=== PATIENT | female | born 1960 | race Caucasian/White ===

== ENCOUNTER 2017-08-13 22:47 | Observation (INO) | payer OTHER ==
[~2017-08-13] VITALS: Ht 165.1 cm; Wt 158.8 kg
--- NOTE | 2017-08-13 23:23 | ED AMS/SEIZURE/WEAK/DIZZY ---
History of Present Illness General Chief Complaint: General Adult Stated Complaint: BIBA FOR GENERALIZED WEAKNESS Source: patient, family, EMS Exam Limitations: no limitations Vital Signs & Intake/Output Vital Signs & Intake/Output Vital Signs Date Time Temp Pulse Resp B/P B/P Pulse O2 O2 Flow FiO2 Mean Ox Delivery Rate 08/14 0636 98.1 97 18 144/65 97 Room Air 08/13 2342 98 Room Air 08/13 2253 99.2 104 18 158/82 97 Room Air ED Intake and Output 08/14 0000 08/13 1200 Intake Total Output Total Balance Patient 350 lb Weight Weight Reported by Patient Measurement Method Allergies Coded Allergies: No Known Allergies (08/13/17) Triage Note: PT BIBA FROM HOME C/O GENERALIZED WEAKNESS. PT NEW TO CT FROM [place]. PT STATED THE PAST 2X WEEKS FELT GENERALIZED WEAKNESS IN PTS BILATERAL LEGS AND ARMS. 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 PT WAS AMBULATING INTO BED TONIGHT WHEN SHE FELT WEAK AND SLID/LOWERED HERSELF TO THE GROUND LANDING ON LEFT SIDE. PT HAS NO COMPLAINTS ON LEFT SIDE CURRENTLY. PT HAS NOT SEEN A PCP IN OVER 10 YEARS. PT DENIES -HEADSTRIKE AND -LOC, UNWITNESSED. PT A&OX3. PT HAS MED SURG GX OF GALLBLADDER REMOVAL AND OBESITY. DR TEJEDA AT BEDSIDE FOR EVAL Triage Nurses Notes Reviewed? yes Onset: 2 weeks Duration: week(s):, constant, continues in ED Timing: recent history Severity: severe Modifying Factors: Improves With: rest. Worsens With: movement. LMP (ages 10-50): post menopausal : No Patient currently breastfeeds: No HPI: Two weeks prior to admission patient complains of bilateral hand and leg weakness progressing to the point of falling trying to get into bed with difficulty ambulating without assistance. She also complains of loose watery stools anorexia several days prior to admission. She denies fever chills nausea vomiting chest pain cough shortness of breath headache dysuria rash bleeding abdominal pain. (Minnie SCOTT,Rishi) Past History Travel History Traveled to [place] past 21 day No Medical History Any Pertinent Medical History? see below for history Neurological: NONE EENT: NONE Cardiovascular: NONE Respiratory: NONE Gastrointestinal: NONE Hepatic: NONE Renal: NONE Musculoskeletal: NONE Psychiatric: NONE Endocrine: obesity Surgical History Surgical History: non-contributory Psychosocial History What is your primary language Honduran Tobacco Use: Never used ETOH Use: occasional use Family History Hx Contributory? No (Rishi Tejeda MD) Review of Systems Review of Systems Constitutional: Reports: see HPI, weakness. EENTM: Reports: no symptoms. Respiratory: Reports: no symptoms. Cardiovascular: Reports: no symptoms. GI: Reports: see HPI, diarrhea. Genitourinary: Reports: no symptoms. Musculoskeletal: Reports: no symptoms. Skin: Reports: no symptoms. Neurological/Psychological: Reports: no symptoms. Hematologic/Endocrine: Reports: no symptoms. Immunologic/Allergic: Reports: no symptoms. All Other Systems: Reviewed and Negative (Rishi Tejeda MD) Physical Exam Physical Exam General Appearance: well developed/nourished, alert, awake, anxious, moderate distress, obese Head: atraumatic, normal appearance Eyes: Bilateral: normal appearance, PERRL, EOMI. Ears, Nose, Throat: normal pharynx, normal ENT inspection, hearing grossly normal Neck: normal inspection, supple, full range of motion, no midline tenderness Respiratory: normal breath sounds, chest non-tender, no respiratory distress, quiet respiration, lungs clear Cardiovascular: regular rate/rhythm, normal peripheral pulses, norml femoral pulses equa Peripheral Pulses: 4+ carotid (R), 4+ carotid (L) Gastrointestinal: normal bowel sounds, soft, non-tender, no organomegaly Back: normal inspection, normal range of motion Extremities: normal range of motion, no ligament instability Neurologic/Psych: awake, alert, oriented x 3, normal mood/affect, booking officer II-XII nml as tested, motor weakness Reflexes: 2+: bicep (R), bicep (L). Skin: intact, normal color, warm/dry Lymphatic: no anterior cervical betsey Core Measures ACS in differential dx? No CVA/TIA Diagnosis No Sepsis Present: No Sepsis Focused Exam Completed? No (Rishi Tejeda MD) Progress Differential Diagnosis: CVA/stroke, dehydration, electrolyte imbalance, hypoxia, pneumonia Plan of Care: Orders Procedure Date/time Status Regular Diet 08/14 B Active OXYGEN SETUP (GEN) 08/14 400 Active Saline Lock 08/[address] in observation 08/14 400 Active Patient Data 08/14 400 Active Vital Signs 08/14 400 Active Activity/Ambulation 08/14 400 Active Code Status 03/04 0401 Active PT Evaluate & Treat 08/14 234 Active CASE MANAGEMENT CONSULT 08/14 234 Active Gait Training, 15 Min 08/14 UNK Complete PT EVAL LOW COMPLEX 20 MIN 08/14 UNK Complete URINALYSIS 08/14 2307 Complete TSH REFLEX 08/14 2307 Complete TROPONIN LEVEL 08/14 2307 Complete MAGNESIUM 08/14 2307 Complete COMPREHENSIVE METABOLIC PANEL 08/14 2307 Complete CBC WITHOUT DIFFERENTIAL 08/14 2307 Complete EKG 08/14 2307 Active Intake & Output 08/14 2251 Active Laboratory Tests 08/14/17 0112: Urine Color YEL, Urine Clarity CLEAR, Urine pH 6.0, Ur Specific [place] 1.025, Urine Protein NEG, Urine Ketones NEG, Urine Nitrite NEG, Urine Bilirubin NEG, Urine Urobilinogen 0.2, Ur Leukocyte Esterase NEG, Ur Microscopic EXAM NOT REQUIRED, Urine Hemoglobin NEG, Urine Glucose NEG 08/13/17 2330: Anion Gap 14, Estimated GFR > 60, BUN/Creatinine Ratio 20.0, Glucose 127 H, Calcium 9.4, Magnesium 1.8, Total Bilirubin 0.9, AST 39 H, ALT 68 H, Alkaline Phosphatase 65, Troponin I < 0.01, Total Protein 8.0, Albumin 4.3, Globulin 3.7, Albumin/Globulin Ratio 1.2, TSH &T3 &Free T4 Intrp 2.680, CBC w Diff NO MAN DIFF REQ, RBC 5.09, MCV 87.0, MCH 29.6, MCHC 34.0, RDW 13.4, MPV 8.4, Gran % 85.0 H, Lymphocytes % 9.9 L, Monocytes % 3.9, Eosinophils % 1.2, Basophils % 0, Absolute Granulocytes 10.9 H, Absolute Lymphocytes 1.3, Absolute Monocytes 0.5, Absolute Eosinophils 0.1, Absolute Basophils 0 Diagnostic Imaging: Viewed by Me: Radiology Read, CT Scan. Discussed w/RAD: Radiology Read, CT Scan. Radiology Impression: no acute abnormality CXR Impression: no acute abnormality, no infiltrates Initial ED EKG: normal axis, normal intervals, normal p-waves, normal QRS complex, normal sinus rhythm, no ST T wave changes Rhythm Strip: normal sinus rhythm Hand-Off Endorsed To: Trent Villar MD Endorsed Time: 0700 Pending: consult (case mgmt, PT) (Rishi Tejeda MD) Departure Departure Condition: Stable Referrals: Patient Has No Primary Care Dr (PCP/Family) Departure Forms: Customer Survey General Discharge Information (Rishi Tejeda MD) Departure Disposition: HOME OR SELF CARE Clinical Impression Primary Impression: Gait instability Secondary Impressions: Leukocytosis, Morbid obesity, Weakness generalized Additional Instructions: Follow-up with the [facility] practice ( ) as soon as possible to arrange for a primary care physician evaluation. Use the walker when ambulating. Return if any concerns or sudden worsening. Please note that there might be incidental findings in your evaluation that are unrelated to the current emergency department visit. Please notify your primary care doctor about this emergency department visit in order to obtain and review all of the testing performed so that these incidental findings can be monitored as needed. If you had an x-ray performed, please understand that some fractures may not be seen on the initial set of x-rays. If your symptoms persist you might need a repeat set of x-rays to check for such a fracture. If you had a laceration evaluated, please understand that foreign bodies such as glass or wood may not be visible to the naked eye or on plain x-rays. If the wound becomes red, swollen, increasingly more painful or if there is any drainage from the wound, please have it reevaluated by a physician for the possibility of a retained foreign body. If you're unable to follow up as outlined in the discharge instructions please return to the emergency department. Thank you for choosing the Emergency Department for your care. It was a pleasure to serve you today. Trent Villar M.D. [facility] Prescriptions: Current Visit Scripts No Known Home Medications Rolling Walker UNIT SEE ADMIN CRITERIA #1 Use as instructed. (Aurea SCOTT,Trent Sanchez) ED Attending Observation Initial Observation Note: I have seen and personally examined ARACELIS SOLIS on 08/14/17 at 0402. I agree with the current emergency department documentation. The disposition (admission or discharge) is uncertain at this time, she needs a period of observation for the following reason(s): generalized debilitation morbid obesity with inability to safely ambulate The ED Nurse caring for this patient has been personally informed as to what the patient is being observed for. (Rishi Tejeda MD) Initial Observation Note: I have seen and personally examined ARACELIS SOLIS on 08/14/17 at 1321. I agree with the current emergency department documentation. The disposition (admission or discharge) is uncertain at this time, she needs a period of observation for the following reason(s): The ED Nurse caring for this patient has been personally informed as to what the patient is being observed for. Observation Discharge: I have reevaluated ARACELIS SOLIS on 08/14/17 at 1321. The patient is: ([X]): Stable for discharge (): To be admitted to Nursing Floor (): To be placed in Observation on Nursing Floor (): For transfer to other facility The patient was being observed for gait instability and assessment I physical therapy for discharge recommendations. As a result of that observation, I have determined the patient is stable for discharge.. (Aurea SCOTT,Trent Sanchez)
[2017-08-13 23:51] LABS: ABSOLUTE BASOPHIL COUNT 0 /CUMM (0.0-0.2); ABSOLUTE EOSINOPHIL COUNT 0.1 /CUMM (0.0-0.7); ABSOLUTE GRANULOCYTE CT 10.9 /CUMM (1.4-6.5); ABSOLUTE LYMPH COUNT 1.3 /CUMM (1.2-3.4); ABSOLUTE MONOCYTE COUNT 0.5 /CUMM (0.10-0.60); BASOPHIL % 0 % (0.0-2.0); EOSINOPHIL % 1.2 % (0-5); HEMATOCRIT 44.3 % (37-47); MEAN CORPUSCULAR HGB 29.6 PG (27.0-31.0); MEAN PLATELET VOLUME 8.4 FL (7.4-10.4); PLATELET COUNT 259 /CUMM (130-400); RBC DISTRIBUTION WIDTH 13.4 % (11.5-14.5); RED BLOOD CELL CT 5.09 /CUMM (4.20-5.40); WHITE BLOOD CELL COUNT 12.8 /CUMM (4.8-10.8)
--- NOTE | 2017-08-14 00:15 | RADIOLOGY REPORT ---
EXAMINATION:\H\ \N\XR CHEST CLINICAL INFORMATION: Fall COMPARISON: None TECHNIQUE: Frontal view of the chest was obtained. FINDINGS: The lungs are hypoinflated, which limits evaluation. Assessment is also limited by patient body habitus. Atelectasis is suspected at the bilateral lung bases. There may be some central vascular congestion, without overt edema. No appreciable pneumothorax. The cardiac silhouette is prominent though may be accentuated by low lung volumes. No acute osseous findings are seen. IMPRESSION: Limited evaluation due to low lung volumes. Possible central vascular congestion. Prominent cardiac silhouette.
--- NOTE | 2017-08-14 00:18 | CT SCAN REPORT ---
EXAMINATION: CT HEAD WITHOUT CONTRAST CLINICAL INFORMATION: Arm, leg weakness, fall COMPARISON: None TECHNIQUE: Contiguous axial imaging was performed from the skull base to vertex without intravenous administration of contrast. DLP: 629.92 mGy-cm FINDINGS: There is no evidence of acute intracranial hemorrhage or territorial infarction. No abnormal mass effect or midline shift is seen. Rowland to white matter differentiation is well preserved. No extra-axial fluid collections are identified. The ventricles are normal in size. There is no abnormal attenuation within the brain parenchyma. The osseous structures and soft tissues are normal. The mastoid air cells and visualized portions of the paranasal sinuses are well aerated. IMPRESSION: No acute intracranial pathology.
[2017-08-14] MEDS ORDERED: RW (13:13)
[2017-08-14 14:39] VITALS: BP 147/70
== END 2017-08-15 14:00 ==
LOC: EDBD 22:47 → ERH 22:47 → ERHI 08-14 04:01
PROVIDERS: Emergency Medicine
DX: R26.9 Unspecified abnormalities of gait and mobility (principal); Z78.0 Asymptomatic menopausal state; D72.829 Elevated white blood cell count, unspecified; E66.01 Morbid (severe) obesity due to excess calories; R53.1 Weakness
CPT/HCPCS: 6090; 71045; 81003; 93005; 93010; 96360; 96361; 97116-GP; 97161-GP; G0378

== ENCOUNTER 2017-11-14 15:09 | Emergency (ER) | payer OTHER ==
[~2017-11-14] VITALS: Ht 160 cm; Wt 139.3 kg
[~2017-11-14 15:09] MED LIST: RW
--- NOTE | 2017-11-14 18:05 | ED DYSPNEA/ASTHMA COMPLAINT ---
See Addendum History of Present Illness General Chief Complaint: Dyspnea (COPD, CHF, Other) Stated Complaint: SOB Source: patient Exam Limitations: no limitations Vital Signs & Intake/Output Vital Signs & Intake/Output Vital Signs Date Time Temp Pulse Resp B/P B/P Pulse O2 O2 Flow FiO2 Mean Ox Delivery Rate 11/15 1429 98.6 81 20 130/72 94 06/05 1316 Room Air Room Air 06/05 1243 97.9 85 20 133/80 100 06/05 1012 99.2 90 18 111/56 95 Room Air 06/05 0753 99.0 84 18 116/58 97 Room Air 06/05 0630 98.9 77 18 108/67 95 Room Air 06/05 0407 99.2 85 18 137/60 95 06/05 0028 99.6 93 18 146/69 94 Room Air 06/04 2123 98.8 78 20 149/67 98 Room Air / 1946 Room Air 06/ 1825 98.4 82 20 138/64 99 Room Air /04 1643 98.4 88 20 126/78 95 Room Air Room Air ED Intake and Output / 0000 /04 1200 Intake Total 0 Output Total Balance 0 Intake, Oral 0 Patient 307 lb Weight Weight Reported by Patient Measurement Method Allergies Coded Allergies: No Known Allergies (08/13/17) Triage Note: PT BIBA TO TRIAGE FOR C/O SOB WITH EXERTION AND WEAKNESS. PT HAD HOME PHYSICAL THERAPY TODAY AND PT NOTICED WHILE WALKING TO THE BATHROOM SHE BECAME "WINDED",. WRIST PAIN. RA SATS 98%, NO OBVIOUS RESP DISTRESS WITH REST. Triage Nurses Notes Reviewed? yes Onset: Gradual Duration: intermittent Timing: recent history Severity: moderate HPI: Patient is a 57-year-old female with a past medical history of gait instability where per old records she was evaluated at [facility] proximal knee 3 months ago for gait instability and multiple falls where now patient has followed up with primary care doctor and is receiving home health aide care of physical therapy where she states that the gait instability still persists however patient presents brought in by ambulance for concerns of dyspnea on exertion last night while going to the bathroom and today while minimal activity of ambulate to the bathroom she had shortness of breath however upon rest her symptoms completely resolved. Patient denies any fever chills chest pain arm pain jaw pain nausea vomiting leg swelling, hemoptysis. Denies any previous smoking denies cough (Jim Andrews) Past History Travel History Traveled to [place] past 21 day No Medical History Any Pertinent Medical History? see below for history Neurological: NONE EENT: NONE Cardiovascular: NONE Respiratory: NONE Gastrointestinal: NONE Hepatic: NONE Renal: NONE Musculoskeletal: NONE Psychiatric: NONE Endocrine: obesity Surgical History Surgical History: non-contributory Psychosocial History What is your primary language Scottish Tobacco Use: Never used ETOH Use: denies use Illicit Drug Use: denies illicit drug use Family History Hx Contributory? No (Jim Andrews) Review of Systems Review of Systems Constitutional: Reports: no symptoms. EENTM: Reports: no symptoms. Respiratory: Reports: see HPI, short of breath. Denies: cough. Cardiovascular: Reports: see HPI. Denies: chest pain. GI: Reports: no symptoms. Genitourinary: Reports: no symptoms. Musculoskeletal: Reports: no symptoms. Skin: Reports: no symptoms. Neurological/Psychological: Reports: no symptoms. Hematologic/Endocrine: Reports: no symptoms. Immunologic/Allergic: Reports: no symptoms. All Other Systems: Reviewed and Negative (Jim Andrews) Physical Exam Physical Exam General Appearance: no apparent distress, obese Head: atraumatic Eyes: Bilateral: normal appearance. Ears, Nose, Throat: hearing grossly normal Neck: normal inspection Respiratory: normal breath sounds, chest non-tender, no respiratory distress Cardiovascular: regular rate/rhythm Neurologic/Psych: no motor/sensory deficits, awake, alert Skin: intact, normal color, warm/dry Core Measures ACS in differential dx? Yes CVA/TIA Diagnosis No Sepsis Present: No Sepsis Focused Exam Completed? No (Jim Adnrews) Progress Differential Diagnosis: asthma, AMI, bronchitis, costochondritis, CHF, COPD, musculoskeletal pain, pericarditis, pulmonary embolism, pneumonia, pneumothorax, unstable angina Plan of Care: Orders Procedure Date/time Status Heart Healthy Diet 11/15 B Active PT Evaluate & Treat 11/15 07 Active CASE MANAGEMENT CONSULT 11/15 0615 Active MOBILITY GOAL STATUS 11/15 UNK Complete MOBILITY CURRENT STATUS 11/15 UNK Complete Gait Training, 15 Min 11/15 UNK Complete PT EVAL LOW COMPLEX 20 MIN 11/15 UNK Complete TROPONIN LEVEL 11/14 2317 Complete EKG 11/14 2317 Active Add-on Test (ER Only) 11/14 1836 Active B-TYPE NATRIURETIC PEP (BNP) 11/14 183 Complete TROPONIN LEVEL 11/14 174 Complete D-DIMER 11/14 174 Complete COMPREHENSIVE METABOLIC PANEL 11/15 1747 Complete CBC WITHOUT DIFFERENTIAL 11/15 1747 Complete EKG 11/15 1747 Active Laboratory Tests 11/14/17 2345: Troponin I < 0.01 11/14/17 1832: Anion Gap 12, Estimated GFR > 60, BUN/Creatinine Ratio 23.8, Glucose 102 H, Calcium 9.4, Total Bilirubin 0.9, AST 31, ALT 49, Alkaline Phosphatase 89, Troponin I < 0.01, Ttd-G-Aoqjfefkusp Pept 67.4, Total Protein 7.9, Albumin 4.2, Globulin 3.7, Albumin/Globulin Ratio 1.1, D-Dimer High Sensitivty 299 H, CBC w Diff NO MAN DIFF REQ, RBC 4.98, MCV 89.3, MCH 30.1, MCHC 33.7, RDW 13.4, MPV 8.0 , Gran % 84.6 H, Lymphocytes % 9.5 L, Monocytes % 5.1, Eosinophils % 0.8, Basophils % 0, Absolute Granulocytes 11.2 H, Absolute Lymphocytes 1.3, Absolute Monocytes 0.7 H, Absolute Eosinophils 0.1, Absolute Basophils 0 Patient upon initial presentation is resting comfortable at bedside no respiratory distress clear lungs auscultation patient received EKG troponin unremarkable blood work and CT scan of a pulmonary embolism patient noted to ambulate with a walker showing 94% room air with no respiratory distress. Patient felt significantly uncomfortable to return home as she has steps to enter her address where she was brought in by ambulance and due to her gait instability she requested evaluation for possible short-term rehabilitation due to fall risk concern and gait instability and shortness of breath Patient will be a hold in the emergency room and received physical therapy stair evaluation Discussed handoff to Dr. Urbano Patient RECEIVED second set troponin and EKG with no acute changes Diagnostic Imaging: Viewed by Me: CT Scan. Radiology Impression: no acute abnormality Initial ED EK BPM,MULTIPLE ARTIFACT Repeat EKG: unchanged Hand-Off Endorsed To: Sundeep SCOTT,Guanaco Lux Endorsed Time: 0104 Pending: consult Comments: PATIENT: ARACELIS SOLIS PRESENT AGE: 57 PATIENT ACCOUNT NO: [id number] : 56 LOCATION: [facility] ORDERING PHYSICIAN: Jim GALLAGHER SERVICE DATE: 11/14/17 EXAM TYPE: CAT - CTA CHEST-PULMONARY EMBOLISM EXAMINATION: CT ANGIOGRAM OF THE CHEST WITH AND WITHOUT CONTRAST (CT PULMONARY ANGIOGRAM FOR PE) CLINICAL INFORMATION: : SOB, ELEVATED DIMER COMPARISON: Chest x-ray 08/13/2017 TECHNIQUE: Prior to contrast administration, noncontrast localization images were obtained. Subsequently, multidetector volumetric imaging was performed from the thoracic inlet to below the diaphragms following the administration of 95 mL Optiray 320 intravenous contrast. No contrast reaction reported. Sagittal, coronal, and MIP oblique sagittal reformatted images were obtained on the CT workstation, uploaded to PACS, and reviewed. Total exam dose-length product 574.31 mGy-cm. FINDINGS: QUALITY OF STUDY/CONTRAST BOLUS: Satisfactory there is artifact. This is due to patient body habitus and the patient's arms at her side. PULMONARY ARTERIES: No central or segmental pulmonary emboli. THORACIC AORTA: No aneurysm or dissection. There are small vascular wall calcifications of the aortic arch. LUNG: No focal consolidation, nodules or masses. PLEURA: No pleural effusion or pneumothorax. MEDIASTINUM: Normal heart size. No pericardial effusion. No hilar or mediastinal lymphadenopathy. No evidence of septal bowing or right heart strain. CHEST WALL/AXILLA: No axillary or internal mammary lymphadenopathy. OSSEOUS STRUCTURES: Degenerative spondylosis of spine with multilevel disc height narrowing and endplate spurring of the vertebrae. UPPER ABDOMEN: Unremarkable. No reflux of contrast into the hepatic veins to suggest elevated right heart pressures. There is low attenuation of liver parenchyma due to fatty change. Status post cholecystectomy. IMPRESSION: 1. No evidence of central pulmonary emboli. 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 Alok Hoff: Case management has been working with physical therapy to get the patient placed in acute rehabilitation from the ED. Unfortunately, authorization was not granted today, and the patient will be held in the ED overnight I had of hopeful placement tomorrow. Case was transitioned to Dr. Villar who will monitor the patient going forward. (Alok Hoff DO) Departure Departure Disposition: STILL A PATIENT Condition: Stable Clinical Impression Primary Impression: Dyspnea Secondary Impressions: Multifactorial gait disorder Referrals: Corrine Castle MD (PCP/Family) Departure Forms: Customer Survey General Discharge Information Prescriptions: Current Visit Scripts No Known Home Medications (Jim Andrews) PA/BLACK JACK DEALER Co-Sign Statement Statement: ED Attending supervision documentation- [X] I saw and evaluated the patient. I have also reviewed all the pertinent lab results and diagnostic results. I agree with the findings and the plan of care as documented in the PA's/BLACK JACK DEALER's documentation. [X] I have reviewed the ED Record and agree with the PA's/BLACK JACK DEALER's documentation. [] Additions or exceptions (if any) to the PAs/BLACK JACK DEALER's note and plan are summarized below: [] (Sundeep SCOTT,Guanaco Lux) Critical Care Note Critical Care Note Critical Care Time: non-applicable (Jim Andrews)
[2017-11-14 18:49] LABS: ABSOLUTE BASOPHIL COUNT 0 /CUMM (0.0-0.2); ABSOLUTE EOSINOPHIL COUNT 0.1 /CUMM (0.0-0.7); ABSOLUTE GRANULOCYTE CT 11.2 /CUMM (1.4-6.5); ABSOLUTE LYMPH COUNT 1.3 /CUMM (1.2-3.4); ABSOLUTE MONOCYTE COUNT 0.7 /CUMM (0.10-0.60); BASOPHIL % 0 % (0.0-2.0); EOSINOPHIL % 0.8 % (0-5); GRANULOCYTE % 84.6 % (42.2-75.2); HEMATOCRIT 44.5 % (37-47); MEAN CORPUSCULAR HGB 30.1 PG (27.0-31.0); MEAN CORPUSCULAR HGB CONC 33.7 G/DL (33.0-37.0); MEAN CORPUSCULAR VOLUME 89.3 FL (81.0-99.0); PLATELET COUNT 282 /CUMM (130-400); RBC DISTRIBUTION WIDTH 13.4 % (11.5-14.5); RED BLOOD CELL CT 4.98 /CUMM (4.20-5.40); WHITE BLOOD CELL COUNT 13.3 /CUMM (4.8-10.8)
--- NOTE | 2017-11-14 21:19 | CT SCAN REPORT ---
EXAMINATION: CT ANGIOGRAM OF THE CHEST WITH AND WITHOUT CONTRAST (CT PULMONARY ANGIOGRAM FOR PE) CLINICAL INFORMATION: : SOB, ELEVATED DIMER COMPARISON: Chest x-ray 08/13/2017 TECHNIQUE: Prior to contrast administration, noncontrast localization images were obtained. Subsequently, multidetector volumetric imaging was performed from the thoracic inlet to below the diaphragms following the administration of 95 mL Optiray 320 intravenous contrast. No contrast reaction reported. Sagittal, coronal, and MIP oblique sagittal reformatted images were obtained on the CT workstation, uploaded to PACS, and reviewed. Total exam dose-length product 574.31 mGy-cm. FINDINGS: QUALITY OF STUDY/CONTRAST BOLUS: Satisfactory there is artifact. This is due to patient body habitus and the patient's arms at her side. PULMONARY ARTERIES: No central or segmental pulmonary emboli. THORACIC AORTA: No aneurysm or dissection. There are small vascular wall calcifications of the aortic arch. LUNG: No focal consolidation, nodules or masses. PLEURA: No pleural effusion or pneumothorax. MEDIASTINUM: Normal heart size. No pericardial effusion. No hilar or mediastinal lymphadenopathy. No evidence of septal bowing or right heart strain. CHEST WALL/AXILLA: No axillary or internal mammary lymphadenopathy. OSSEOUS STRUCTURES: Degenerative spondylosis of spine with multilevel disc height narrowing and endplate spurring of the vertebrae. UPPER ABDOMEN: Unremarkable. No reflux of contrast into the hepatic veins to suggest elevated right heart pressures. There is low attenuation of liver parenchyma due to fatty change. Status post cholecystectomy. IMPRESSION: 1. No evidence of central pulmonary emboli. VTE: negative
[2017-11-16 18:05] VITALS: BP 168/96
== END 2017-11-16 19:16 ==
LOC: ERH 15:09
PROVIDERS: Physician Assistant
DX: R06.00 Dyspnea, unspecified (principal); R26.81 Unsteadiness on feet
CPT/HCPCS: 93005; 93010; 97116-GP; 97161-GP; G8978-GP; G8979-GP

== ENCOUNTER 2018-02-07 01:25 | Inpatient (IN) | payer OTHER ==
[~2018-02-07] VITALS: Ht 160 cm; Wt 133.8 kg
[~2018-02-07 01:25] MED LIST changes: +DEXAMETHASONE2 M1 PO; +DIAZEPAM5 M1 PO; +HYDROCODON-ACE1 EAC2 PO; +NEXIUM40 M1 PO
[2018-02-07 08:56] LABS: PT 12.1 SEC (9.4-12.5); PTT 26 SEC (25-37)
--- NOTE | 2018-02-07 14:12 | Admission Core Measures ---
Acute Coronary Syndrome (CM) ACS Core Measures Acute Coronary Syndrome Diagnosis No Congestive Heart Failure (NEW) CHF Core Measures Congestive Heart Failure Diagnosis No Cerebrovascular Accident CVA Core Measures CVA/TIA Diagnosis No Venous Thromboembolism VTE Core Devante (View Protocol) VTE Risk Factors Surgery No Mechanical VTE Prophylaxis d/t N/A MechProphylax Ordered No VTE Pharm Prophylaxis d/t NA PharmProphylax ordered HOME MEDS Home Med List Dexamethasone 2 MG TABLET 1 TAB PO Q6 SWELLING (Reported) Diazepam 5 MG TABLET 1 TAB PO Q8 MUSCLE RELAXING (Reported) Esomeprazole (Nexium) 40 MG CAPSULE.DR 1 CAP PO DAILY GERD (Reported) Hydrocodone/Acetaminophen (Hydrocodon-Acetaminophen 5-325) 5 MG-325 MG TABLET 1-2 TAB PO Q4-6 PRN PRN PAIN (Reported)
--- NOTE | 2018-02-07 15:39 | Operative Report ---
Operative/Inv Procedure Report Surgery Date: 02/07/18 Name of Procedure: Anterior C4-5 discectomy and fusion. Anterior C5-6 discectomy and fusion. Anterior C6-C7 discectomy and fusion. Insertion of anterior C4-5 interbody 7 mm titanium cage centrally filled with autologous bone graft. Insertion of anterior C5-6, 7 millimeter interbody titanium cage centrally filled with autologous bone graft. Anterior C6-C7 interbody titanium 7 mm cage centrally filled with bone graft. Anterior C4-5-6 7 segmental instrumentation by [place] titanium. Autologous bone graft. Pre-Operative Diagnosis: Cervical stenosis cervical disc herniations with myelopathy C4 through C7. Post-Operative Diagnosis: Same Estimated Blood Loss: 50ml to 100ml Surgeon/Edger Machine Operator: Bala Levin MD and Brooklyn Chavez MD Anesthesia: general endotracheal tube Monitors: Electrophysiological monitoring Implants: Malathi titanium Specimens: Disc material Complications: None Condition: Good Operative/Procedure Note Note: Patient was brought into the operating room and after undergoing endotracheal intubation, Lopez catheterization Venodyne's were placed on both lower extremities. The patient was intubated placed in supine position with arms on the side head and slight extension all bony prominences well-padded. Shoulders were taped downwards. Fluoroscopy was used for localization. The neck was washed with DuraPrep solution and draped in usual sterile fashion. The incision was made in an anterior neck crease of the right of midline approximately 2 inches in length and developed down to the subcutaneous tissues. The platysma was raised and incised and then undermined superiorly and inferiorly medially and laterally. Working in an avascular plane medial to the sternocleido and my carotid and lateral to the trachea and esophagus the anterior spine was accessed. Lateral retractors were placed underneath the longus coli muscle. [place] pins were now placed at C4 and C6 and the whole construct was distracted. The disc spaces at C4-5 and C5-6 were not entered with a 15 blade and now were removed with a combination of cynthia and Suzan she was instructed to cup curettes. The bony osteophytes were removed morselized and later used in the arthrodesis. The bony endplates were partially decorticated. The posterior longitudinal ligament was incised and cut foramen to foramen. The underlying osteophyte superiorly inferiorly at each level C4-5 and C5-6 were now undermined and removed. A 7 mm titanium cage was centrally filled with autologous bone graft and tapped across the C4-5 space. Similarly a 7 mm titanium cage was centrally filled with autologous bone graft and tapped across the C5-6 space. The [place] pins were removed and bone wax was used for the pin sites. The C6-C7 space was now distracted with [place] pins and entered with an 11 blade. The disc was removed with a combination of straight and curved rongeurs and straight and curved curettes. Osteophytes were removed morcellized and used in the arthrodesis. The ligament was now lifted and incised foramen to foramen. The cartilaginous endplates were removed and the bony endplates were partially decorticated. A 7 mm titanium cage was centrally filled with autologous bone graft and tapped across the midline. Rangeley pins were removed and bone wax was used for hemostasis. Anterior osteophytes were further flattened out to make room for the anterior plate. A Malathi titanium plate was now used to affix the construct together and secured to the C4-C5-C6 and C7 vertebra with 40 mm titanium screws. Copious amounts of bacitracin irrigation were used. Hemostasis was meticulously achieved. A round 10 drain was removed through separate stab incision and secured to the skin. The platysma was reapproximated utilizing interrupted 3-0 Vicryl. Subcuticular closure was achieved with 4-0 Vicryl. Steri-Strips were the skin. Patient was extubated and taken to the recovery room having tolerated procedure well.
--- NOTE | 2018-02-07 16:00 | Operative Report ---
Operative/Inv Procedure Report Surgery Date: 02/07/18 Name of Procedure: C4 5, C5 6, C6 7 anterior cervical discectomy and fusion with Rigby titanium interbody cage, aviator anterior cervical plate and screws, autograft, DBM, use of intraoperative fluoroscopy Pre-Operative Diagnosis: C4 5, C5 6, C6 7 stenosis with aggressive myelopathy Post-Operative Diagnosis: Same Estimated Blood Loss: less than 50ml Surgeon/Beam Sealer: Scott SCOTT,Bala Mcconnell M.D. Anesthesia: general endotracheal tube Monitors: Neurophysiologic monitoring IV Fluids: Replaced with crystalloid Implants: Malathi Urine Output: Via Lopez Drains: Medium ANEESH Specimens: C4 5, C5 6, C6 7 disc material Complications: none Condition: Stable Operative Indication: Patient is a 57-year-old woman who presents with a rapidly progressive cervical myelopathy with severe spasticity, increasing weakness, and paresthesias of the upper and lower extremities with severe at gait impairment. MRI imaging of the cervical spine identifies multilevel cervical spondylosis with disc osteophyte complexes at C4 5, C5 6, and C6 7. This resulted high-grade central canal stenosis, worse at C4 5, associated with severe cord compression and increased T2 signal in the cord consistent with a compressive myelopathy. At C5 6 there is a left paracentral disc herniation with compression of the left C6 root. At C6 7, there are prominent left lateral and uncovertebral spurs resulting in high -grade lateral recess and left foraminal stenosis with severe impingement of the left C7 root. In light of the patient's rapid clinical progression, she now presents for surgical decompression and instrumented fusion on an urgent basis. The indications, risks, benefits, and nonsurgical alternatives have been explained to the patient in detail. She understood and elected to proceed. A written operative consent was obtained. Operative/Procedure Note Note: The patient was taken to the operating room. After appropriate patient identification and surgical timeout, the patient underwent the smooth induction of general endotracheal anesthesia without incident. With the endotracheal tube secured in position, Lopez catheter was sterilely inserted. DVT prophylaxis was utilized throughout the case. Neurophysiologic monitoring leads were placed and baseline recordings were obtained. Patient was positioned supine on the operating table with a bump under the shoulders and the neck gently extended on a donut. The shoulders were retracted downward with tape. The ventral neck was widely prepped and draped usual sterile fashion using povidone iodine solution. The C-arm fluoroscope was sterilely draped into the field and the levels of C4 5 , C5 6, and C6 7 were localized on the skin surface. A linear transverse skin incision was marked in a pre-existing neck fold beginning at the midline extending to the right side up proximally a 4-5 cm and infiltrated with local anesthetic. Skin incision was made with a 10 blade knife. Dissection was carried down through subcutaneous tissue with the Bovie. The underlying platysma muscle was identified elevated undermined and divided. Subplatysmal planes were created rostrally and caudally. Combination of digital and blunt dissection was used medial to the sternocleidomastoid and lateral to the trachea and esophagus down to the prevertebral fascia. The crossing omohyoid muscle was carefully reflected rostrally. The carotid sheath was identified and retracted laterally. The prevertebral fascia was easily identified and was gently swept off the ventral aspect of the vertebral bodies with a peanut. A small crossing of a vessel was doubly ligated and divided. A small gauge spinal needle was placed superficially within the presumed C5 6 disc space and a localizing lateral cervical x-ray was obtained and confirmed this to be the correct level. The longus colli muscles were then reflected about the disc spaces are at C4 5, C5 6 , and C6 7 bilaterally and self-retaining retractors were placed beneath the muscle. The endotracheal cuff was deflated and slowly reinflated to minimize tracheal wall pressure. Annulotomy's of C4 5, C5 6, C6 7 were performed with a 15 blade knife and superficial discectomies a with small straight and angled curettes and pituitary rongeurs. Angina to the C4 5 and C5 6 interspaces. [place] pins were placed in the C4 and C6 vertebral endplates and the disc spaces were distracted together. Monitoring was stable. Discectomies at both levels were performed with small straight and angled curettes and pituitary rongeurs down to the spinal canal. The posterior longitudinal ligament was elevated and sequentially resected with a 2 and 3 mm Kerrison punch and excellent decompression of the underlying thecal sac was accomplished. At both levels endplate osteophytes were further resected with the Kerrisons to the level of the proximal foramen on both sides. A small amount of venous epidural bleeding over the shoulder of the exiting roots was easily controlled with thorough irrigation and FloSeal. All of the cartilaginous endplates were removed and the endplates were further prepared for arthrodesis. Once an excellent decompression was accomplished, 7 mm x 12 x 14 mm Rigby titanium cages were selected with 6 of lordosis after appropriate trials. These were filled with morcellated autograft from the osteophytectomy and a bio DBM and gently impacted into the C4 5 and subsequently C5 6 interspaces and and carefully countersunk. Once cages were in position of the [place] retractors released compressing the graft between the respective vertebral bodies. The C4 [place] pin was removed and the bone was waxed. We then focused our attention to the level of C6 7. [place] pin was placed in the C7 vertebral body and the disc space of C6 7 was distracted. Annulotomy was performed with a 15 blade knife and discectomy completed with small straight and angled curettes and pituitary rongeurs. At this level a heavy osteophytes were noted to the left of midline extending to the left foramen which were sequentially drilled with the Midas Solomon and resected further with Kerrison rongeurs until an excellent decompression was accomplished. The posterior longitudinal ligament was hypertrophic. This was gently elevated and sequentially resected with 2 and 3 mm Kerrison punches until an excellent decompression of the midline of spinal canal as well as the proximal foramen was accomplished bilaterally. We able to appreciate the shoulders of the exiting C7 nerve roots on both sides and they appeared well decompressed. Endplate osteophytes were further undercut resected with the Kerrisons. All of the cartilaginous endplate was removed and the endplates were further prepared for arthrodesis. The interspace was irrigated. Meticulous hemostasis is achieved using FloSeal. After appropriate trials, a third 7 x 12 x 14 mm titanium cage was selected with 6 of lordosis. This was filled with morcellated autograft and DBM and gently impacted into the C6 7 interspace and countersunk. I with the graft in position of the [place] retractor was released compressing the graft between the respective vertebral bodies in the [place] pins were removed. The bone was waxed. With all 3 cages in position, the ventral aspect of the vertebral bodies was contoured using combination of the [place] rongeur and Midas Solomon to facilitate placement of the anterior plate. A 45 mm 8 hole Malathi MANUELA plate was selected and provisionally placed from C4 to C7 with a plate-holding pin. The position of plate was confirmed visually and 9 noted to be excellent. The plate was then affixed the vertebral bodies using a series of 8 14 mm screws. Each screw was placed by piercing the bone with an awl and placing a self drilling self-tapping screw. Once all screws were in position, the locking mechanism was deployed securing each of the screws. The wound was copiously irrigated with sterile saline bacitracin irrigation. Meticulous hemostasis was ensured prior to wound closure. Final AP and lateral x-rays were obtained and saved and showed excellent position of the interbody cages and anterior instrumentation. Monitoring was noted to be stable. I we then began wound closure. A medium ANEESH drain was placed into the wound and secured to the skin with a 2-0 nylon suture. The platysma was reapproximated with interrupted 3-0 Vicryl suture. The skin was closed in layers with interrupted 3-0 Vicryl suture in the dermis and a running 4-0 Vicryl subcuticular stitch in the skin. The wounds clean and dried. Steri-Strips and a sterile occlusive dressing was placed. The patient was placed in a soft cervical collar. She was awakened extubated and taken to PACU in stable condition. She was noted to be moving all 4 extremities at the completion of the case. All sponge, needle, and injuring counts are correct at the completion of procedure 3. Neurophysiologic monitoring was stable throughout the case. Discharge Disposition: PACU
--- NOTE | 2018-02-07 16:34 | RADIOLOGY REPORT ---
EXAMINATION: CERVICAL SPINE OR CLINICAL INFORMATION: C4-C5 fusion. COMPARISON: Preoperative x-rays 02/03/2018.. TECHNIQUE: 5 intraoperative views of the cervical spine were obtained. FINDINGS: These images demonstrate progressive post operative changes during ACDF at the levels of C4-C7 and anterior plate, screws and intervertebral disc devices are noted. Imaging is suboptimal due to overlying shoulders and body habitus. Number of images: 5. Fluoroscopy time: 19 seconds. IMPRESSION: 1. Intraoperative images of the cervical spine during ACDF procedure. Please see surgical notes for further details.
[2018-02-07 17:30] VITALS: BP 112/65
--- NOTE | 2018-02-07 18:45 | PN- Neurosurgical ---
Subjective Subjective: Postop check: Patient lying in bed in her room, she is comfortable, awake and alert, mild soreness in the neck and mild sore throat. No worsening of her preoperative upper extremity and lower extremity numbness and tingling. No jorge weakness. She is in good spirits. No nausea no vomiting. Objective Vital Signs and I&Os Vital Signs Date Time Temp Pulse Resp B/P B/P Pulse O2 O2 Flow FiO2 Mean Ox Delivery Rate 02/07 1751 Nasal 2.0L Cannula 02/07 1730 97.7 71 18 112/65 97 Intake & Output 02/07 1600 02/07 0800 02/07 0000 02/06 1600 02/06 0800 02/06 0000 Intake Total Output Total Balance Patient 304 lb Weight Physical Exam: Well-developed well-nourished no apparent distress. HEENT: Atraumatic, extraocular motion intact Neck: Supple, dressing clean dry and intact, ANEESH drain to bulb syringe holding self suction with approximately 15 cc of bloody drainage noted. Minimal swelling of the neck, no tracheal deviation. Soft cervical collar in place Respiratory: No respiratory distress abdomen: Obese Extremities: No edema, no calf pain Neuro: Alert and oriented x3 Bilateral upper extremities and lower exam is a neurovascular intact with sensation motor grossly intact, "preoperative numbness and tingling present" Psych: Mood affect normal, normal memory normal judgment. Skin: Warm and dry, no rash on exposed skin Results Last 48 Hours of Labs: Laboratory Tests 02/07 0834 Coagulation PT (9.4 - 12.5 SEC) 12.1 INR (0.90 - 1.19) 1.11 APTT (25 - 37 SEC) 26 Assessment/Plan Assessment/Plan Postop day #0 status post C4 5, C5 6, C6 7 anterior cervical discectomy and fusion secondary to spinal stenosis with aggressive myelopathy Regular diet Pain medication as needed Out of bed to chair Heparin subcu for DVT prophylaxis starting tomorrow morning Continue ANEESH drain to self suction, record output every shift Continue Ancef until the drain is removed GI prophylaxis with PPI Soft cervical collar at all times Continue IV fluids until tolerating adequate p.o. Core Measures Venous Thromboembolism VTE Risk Factors Surgery No Mechanical VTE Prophylaxis d/t N/A MechProphylax Ordered No VTE Pharm Prophylaxis d/t NA PharmProphylax ordered
[2018-02-07 19:45] VITALS: BP 140/80
[2018-02-07 21:44] VITALS: BP 140/60
[2018-02-07 23:53] VITALS: BP 140/70
[2018-02-08 03:45] VITALS: BP 140/68
--- NOTE | 2018-02-08 10:23 | PN- Neurosurgical ---
Subjective Subjective: No acute overnight events reported. Patient continues to note bilateral upper extremity weakness but denies throat pain and difficulty swallowing. Denes chest pain, shortness of breath and difficulty breathing. Denies nausea and vomitting. Has yet to ambulate, is requesting PT evaluation now to help get oob to toilet, feels like she has to move bowels. Objective Vital Signs and I&Os Vital Signs Date Time Temp Pulse Resp B/P B/P Pulse O2 O2 Flow FiO2 Mean Ox Delivery Rate 02/08 0345 97.4 67 20 140/68 99 Nasal 3.0L Cannula 02/08 0000 Nasal 2.0L Cannula 02/07 2353 98.3 69 20 140/70 99 Nasal 3.0L Cannula 02/07 2144 98.1 70 20 140/60 99 Nasal Cannula 02/07 1945 98.4 86 20 140/80 99 Nasal Cannula 02/07 1751 Nasal 2.0L Cannula 02/07 1730 97.7 71 18 112/65 97 Intake & Output 02/08 1600 02/08 0800 02/08 0000 02/07 1600 02/07 0800 02/07 0000 Intake Total 1000 600 Output Total 750 440 Balance 250 160 Intake, IV 800 400 Intake, Oral 200 200 Output, 40 Drainage Output, Urine 750 400 Patient 304 lb Weight Physical Exam: General: Alert and oriented x3, no acute distress Cardiac: RRR, s1s2 Pulm: CTA bialterally ABD: Non-distended Extremities: Bilateral upper extremity weakness noted, moves all extremities, distal sensation not fully intact to fingers, consistent with preop findings. Bialteral caves soft and non-tender Surgical site; Neck, soft collar in place, dressing dry and intact, nakul holding suction, sanguinous output. No periincisional hematoma. Voice strong. Assessment/Plan Assessment/Plan This is a 57 year old female, POD 1, s/p ACDF c4-7. PMH signficant for morbid obesity, gerd and a preoperative ekg change. She was evaluated preoperatively by geotechnical field technician and given clearance for surgery with a recommendation to be evaluated in hospital post op by cardiology team. -Dr Nguyễn's office consulted for cardiology -Start decadron taper per Dr. Chavez 4 mg q6h x24 hr 3 mg q6h x24 hr 2 mg q6h x48 hr 1 mg q6h x48 hr 1 mg q12h x48 hr 1 mg daily x48 hr -OOB with PT -Soft collar -Drain until output 15 cc or less -iv abx while drain in place -follow wound care recommendations -dc planning, str, ?[place] Core Measures Venous Thromboembolism VTE Risk Factors Surgery No Mechanical VTE Prophylaxis d/t N/A MechProphylax Ordered No VTE Pharm Prophylaxis d/t NA PharmProphylax ordered
--- NOTE | 2018-02-08 10:33 | Patient Discharge Instructions ---
Discharge Instructions General Discharge Information You were seen/treated for: C4 5, C5 6, C6 7 stenosis with aggressive myelopathy You had these procedures: C4 5, C5 6, C6 7 anterior cervical discectomy and fusion Watch for these problems: Increasing pain despite the use of pain medications Increasing weakess, numbess to bilateral arms and hands Neck pain, difficulty breathing, difficulty speaking, difficulty swallowing Fever, flulike illness Call Surgeon to remove: Cinebar Do not soak the wound: Yes Other wound care: Keep wound clean and dry No ointments on or near incision at any time, no exceptions Soft collar at all times unless otherwise indicated by Dr Chavez Diet Continue normal diet: Yes Recommended Diet: Regular Additional DIET Information: Advance as tolerated Activity Full Activity/No Limits: No Activity Self Limited: Yes Pounds, do NOT lift more than: 5 Acute Coronary Syndrome Inclusion Criteria At DC or during hospital stay patient has or had the following: ACS DIAGNOSIS No Discharge Core Measures Meds if any: Prescribed or Continued at Discharge Meds if any: NOT Prescribed or Continued at Discharge Congestive Heart Failure Inclusion Criteria At DC or during hospital stay patient has or had the following: CHF DIAGNOSIS No Discharge Core Measures Meds if any: Prescribed or Continued at Discharge Meds if any: NOT Prescribed or Continued at Discharge Cerebrovascular accident Inclusion Criteria At DC or during hospital stay patient has or had the following: CVA/TIA Diagnosis No Discharge Core Measures Meds if any: Prescribed or Continued at Discharge Meds if any: NOT Prescribed or Continued at Discharge Venous thromboembolism Inclusion Criteria VTE Diagnosis No VTE Type NONE VTE Confirmed by (Test) NONE Discharge Core Measures - Per Current guidelines, there needs to be overlap - treatment for the first 5 days of Warfarin therapy. - If discharged on Warfarin prior to 5 days of - overlap therapy, the patient will need to be - assessed for post discharge needs including - *Post discharge parental anticoagulation - *Warfarin and/or parental anticoagulation education - *Follow up date to check INR post discharge At least 5 days overlap therapy as Inpatient No Meds if any: Prescribed or Continued at Discharge Note: Overlap Therapy is Warfarin and Anticoagulant Meds if any: NOT Prescribed or Continued at Discharge
--- NOTE | 2018-02-08 10:40 | Surgical Discharge Summary ---
Visit Information Visit Dates Admission Date: 02/07/18 Discharge Date: 02/09/2018 History of Present Illness Chief Complaint: C4 5, C5 6, C6 7 stenosis with aggressive myelopathy Medical History Blood Transfusion Hx: No Neurological: NONE EENT: NONE Cardiovascular: NONE Respiratory: NONE Gastrointestinal: NONE Hepatic: NONE Renal: NONE Musculoskeletal: NONE Psychiatric: NONE Endocrine: obesity Blood Disorders: NONE Cancer(s): NONE CHIEF DEPUTY/Reproductive: NONE History of MRSA: No History of VRE: No History of CDIFF: No Isolation History: Standard Surgical History Pertinent Surgical History: non-contributory Psychosocial History What is Your Primary Language? Prydeinig Review of Systems: See h&p Hospital Course Course Attending Physician: Brooklyn Chavez MD Primary Care Physician: Corrine SCOTT,Corrine Hospital Course: Zabrina was admitted to the hospital after a semi-urgent C4 5, C5 6, C6 7 anterior cervical discectomy and fusion. She tolerated the procedure well and post operatively was transferred to a general surgical floor. Her swallow reflex was found to be intact and her diet was advanced and tolerated. She was evaluated and treated by physical therapy. She was evaluated post operatively by cardiology and recommendations were made to follow up as an outpatient. She was also seen and treated by wound care team for a skin breakdown that she had prior to admission. Her drain was removed on 02/09. At the time of hospital discharge, her vital signs were stable and within normal limits and her neurovascular status was intact. She was seen by physical therapy and deemed appropriate for discharge to home with services. She was on a steroid taper at discharge. Allergies: Coded Allergies: No Known Allergies (08/13/17) Significant Procedures: See operative report Disposition Summary Disposition Principal Diagnosis: C4 5, C5 6, C6 7 stenosis with aggressive myelopathy Additional Diagnosis: None Discharge Disposition: SNF Discharge Instructions General Discharge Information Code Status: Full Code Patient's Diet: Regular, advance texture as tolerated Patient's Activity: As tolerated, soft collar at all times Follow-Up Instructions/Appts: Follow up with Dr. Chavez in 1-2 weeks from date of surgery. Follow up with Dr. Tovar of cardiology within two weeks of surgery for recommendations regarding EKG changes. Medications at Discharge Discharge Medications: Continue taking these medications: Hydrocodone/Acetaminophen (Hydrocodon-Acetaminophen 5-325) 5 MG-325 MG TABLET 1-2 Tablet ORAL EVERY 4-6 HOURS NEEDED as needed for PAIN Esomeprazole (Nexium) 40 MG CAPSULE.DR 1 Capsule ORAL DAILY Diazepam (Diazepam) 5 MG TABLET 1 Tablet ORAL EVERY 8 HOURS Qty = 9 This prescription has been renewed Start taking the following new medications: Dexamethasone (Dexamethasone) 1 MG TABLET 1 Milligram ORAL See Instructions Qty = 39 No Refills Instructions: TAPER FOLLOWS: ON 02/09 TAKE 3 TABLETS EVERY 6 HOURS FOR 24 HRS ON 02/10 TAKE 2 TABLETS EVERY 6 HOURS FOR 48 HOURS ON 02/12 TAKE 1 TABLET EVERY 6 HOURS FOR 48 HOURS ON 02/14 TAKE 1 TABLET EVERY 12 HOURS FOR 48 HOURS ON 02/16 TAKE 1 TABLET DAILY FOR 48 HOURS
[2018-02-08 15:39] VITALS: BP 110/75
--- NOTE | 2018-02-08 17:45 | Cons- Cardiology ---
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 She was noted to have minor EKG changes on preoperative evaluation, however because of the urgent need for surgery no further workup was recommended prior to surgery. She was advised to have a cardiology evaluation postoperatively. She reports that she has been feeling well from a cardiac standpoint. She has not had any chest discomfort. No shortness of breath. No palpitations. No diaphoresis. No nausea or vomiting. No lightheadedness or dizziness. There were no surgical complications, and she is planned for discharge tomorrow. She notes a remote history of using Fen/Phen, and she had an echocardiogram at that time which was reportedly normal. Allergies/Medications Allergies: Coded Allergies: No Known Allergies (08/13/17) Home Med List: Dexamethasone 2 MG TABLET 1 TAB PO Q6 SWELLING (Reported) Diazepam 5 MG TABLET 1 TAB PO Q8 MUSCLE RELAXING (Reported) Esomeprazole (Nexium) 40 MG CAPSULE.DR 1 CAP PO DAILY GERD (Reported) Hydrocodone/Acetaminophen (Hydrocodon-Acetaminophen 5-325) 5 MG-325 MG TABLET 1-2 TAB PO Q4-6 PRN PRN PAIN (Reported) Current Medications: Current Medications Sig/Nicolas Start time Last Medication Dose Route Stop Time Status Admin Acetaminophen 650 MG Q4P PRN 02/07 1645 AC 02/08 PO 0859 Bisacodyl 10 MG DAILY NEEDED PRN 02/07 1645 AC NM Cefazolin Sodium 2 GM Q8H 02/08 0400 AC 02/08 N/A 1 UNIT IV 02/10 1229 1125 Cefazolin Sodium 2 GM Q8H 02/07 1800 DC 02/07 N/A 1 UNIT IV 02/10 1029 2017 Dexamethasone 1 MG Q24H 02/16 0800 AC PO 02/18 0800 Dexamethasone 1 MG Q12H 02/14 08 AC PO 02/15 2200 Dexamethasone 1 MG Q6H 02/12 0800 AC PO 02/14 0200 Dexamethasone 2 MG Q6H 02/10 0800 AC PO 02/12 0200 Dexamethasone 3 MG Q6H 02/09 0800 AC PO 02/10 0200 Dexamethasone 4 MG Q6H 02/08 0800 AC 02/08 PO 02/09 0200 1325 Diazepam 5 MG Q8P PRN 02/07 1700 AC PO Docusate Sodium 100 MG BID 02/07 2100 AC 02/08 PO 0856 Heparin Sodium 5,000 UNIT Q8 02/08 0600 AC 02/08 (Porcine) SC 1324 Hydrocodone Bitart/ 1 TAB Q4P PRN 02/08 1215 AC Acetaminophen PO Hydrocodone Bitart/ 2 TAB Q4P PRN 02/08 1215 AC Acetaminophen PO Hydromorphone HCl 1 MG Q4P PRN 02/07 1700 DC 02/08 IV 1016 Omeprazole 40 MG DAILY AC 02/08 0700 AC PO Ondansetron HCl 4 MG Q6P PRN 02/07 1645 AC IV Oxycodone/ 2 TAB Q4P PRN 02/07 1645 DC 02/08 Acetaminophen PO 0353 Sodium Chloride 1,000 ML .Q10H 02/07 1700 DC 02/08 IV 02/08 1259 0224 Trimethobenzamide HCl 200 MG Q6P PRN 02/07 1645 AC IM Review of Systems Review of Systems: No fever. No chills. No rash. No tremor. No melena. 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 Surgical History Surgical History: non-contributory Family History Relations & Conditions If Any: MOTHER FH: stroke Psychosocial History Smoking Status: Never Smoked Exam & Diagnostic Data Vital Signs and I&O Vital Signs Date Time Temp Pulse Resp B/P B/P Pulse O2 O2 Flow FiO2 Mean Ox Delivery Rate 02/08 1539 97.9 79 20 110/75 98 Nasal Cannula 02/08 0800 Nasal 3.0L Cannula 02/08 0345 97.4 67 20 140/68 99 Nasal 3.0L Cannula 02/08 0000 Nasal 2.0L Cannula 02/07 2353 98.3 69 20 140/70 99 Nasal 3.0L Cannula 02/07 2144 98.1 70 20 140/60 99 Nasal Cannula 02/07 1945 98.4 86 20 140/80 99 Nasal Cannula Intake & Output 02/08 1600 08/29 0800 02/08 0000 02/07 1600 02/07 0800 02/07 0000 Intake Total 1000 600 Output Total 750 440 Balance 250 160 Intake, IV 800 400 Intake, Oral 200 200 Output, 40 Drainage Output, Urine 750 400 Patient 304 lb Weight Physical Exam: Gen: The patient is in no acute distress HEENT: Normal nose, ears, and oropharynx. Pupils equal bilaterally. Conjunctiva normal. Neck: Supple with no JVD, no masses, and no thyromegaly Lungs: Clear to auscultation with normal respiratory effort Heart: RRR, S1, S2, no murmurs. No peripheral edema, 2+ pulses in the lower extremities bilaterally Abdomen: Soft, nontender, no masses. No hepatomegaly. No splenomegaly Extremities: No clubbing or cyanosis. Normal muscle strength in the upper and lower extremities Skin: Normal skin turgor with no skin ulcers or lesions noted. Neuro: Cranial nerves intact. Sensation intact Psych: Alert and oriented x 3 with appropriate affect Labs/Marco Results: Laboratory Tests 02/07 0834 Coagulation PT (9.4 - 12.5 SEC) 12.1 INR (0.90 - 1.19) 1.11 APTT (25 - 37 SEC) 26 Diagnostic Data EKG Results EKG tracings independently reviewed, and reveals normal sinus rhythm at 82 with borderline inferior Q-wave CXR Results Chest x-ray 02/03/18: Negative Assessment/Plan Assessment/Plan The patient is a 57-year-old female with no cardiac history who is status post semiurgent cervical spine surgery yesterday. She has a remote history of using Fen/Phen, however she notes that an echocardiogram was normal at the completion of therapy. She is noted to have a mildly abnormal EKG with borderline inferior Q waves. She is completely asymptomatic from a cardiac standpoint and has no history of significant cardiac disease. Recommendations: * No further inpatient workup or treatment is needed for the EKG abnormality in the absence of symptoms * I advised the patient to follow up in the office once she has recovered from her surgery in 2-4 weeks * I will arrange for echocardiogram and and stress testing as an outpatient for further workup of the abnormal EKG Consult Acknowledgment - Thank you for your consult request.
[2018-02-08 22:39] VITALS: BP 140/70
[2018-02-09 06:52] VITALS: BP 140/70
[2018-02-09] MEDS ORDERED: DIAZEPAM5 M1 PO (08:36)
[2018-02-09] MEDS ORDERED: DEXAMETHASONE1 M1 PO (09:05)
[2018-02-09 14:17] VITALS: BP 138/80
--- NOTE | 2018-02-09 17:03 | PN- Neurosurgical ---
Subjective Subjective: Pt seen by Dr Chavez OOB in chair Feels good Ambulating with PT Pain is well controlled No complaints Tolerating diet, no n/v voiding without difficulty Objective Vital Signs and I&Os Vital Signs Date Time Temp Pulse Resp B/P B/P Pulse O2 O2 Flow FiO2 Mean Ox Delivery Rate 02/09 1457 Room Air 02/09 1417 98.4 76 18 138/80 98 Room Air 02/09 0652 99.0 74 20 140/70 94 Room Air 02/08 2239 98.6 74 20 140/70 96 Room Air Intake & Output 02/09 1600 02/09 0800 02/09 0000 02/08 1600 02/08 0800 02/08 0000 Intake Total 600 872 304 3607 600 Output Total 1410 20 750 440 Balance -810 300 340 250 160 Intake, IV 300 100 800 400 Intake, Oral 300 200 360 200 200 Output, 10 20 40 Drainage Output, Urine 1400 750 400 Patient 295 lb 304 lb Weight Weight Bed scale Measurement Method Physical Exam: VSS, afebrile Pt examined by Dr Chavez Dressing changed: Wound is clean and dry, steri strips in place ANEESH removed without difficulty Redressed with gauze C collar in place Assessment/Plan Assessment/Plan 57yo female pod 2 s/p ACDF C4-7 dc planning dc ancef cleared by PT for discharge home with services continue steroid taper as prescribed discussed home services with case management - arrangements complete Core Measures Venous Thromboembolism VTE Risk Factors Surgery No Mechanical VTE Prophylaxis d/t N/A MechProphylax Ordered No VTE Pharm Prophylaxis d/t NA PharmProphylax ordered
== END 2018-02-09 17:09 | disposition home health service (06) | DRG 473 ==
LOC: SDA 01:25 → ENRESERV 16:24 → ENTRNSPT 17:08 → 2NA 17:25 → CMPTRNSPT 17:26 → ENPENDDIS 02-09 09:05 → ENTRNSPT 02-09 16:58 → 2NA 02-09 17:09 → CMPTRNSPT 02-09 17:15
PROVIDERS: Neurological Surgery
PROC: 0RG2070 Fusion of 2 or more Cervical Vertebral Joints with Autologous Tissue Substitute, Anterior Approach, Anterior Column, Open Approach (ICD-10-PCS; principal; 2018-02-07)
PROC: 4A11X4G Monitoring of Peripheral Nervous Electrical Activity, Intraoperative, External Approach (ICD-10-PCS; principal; 2018-02-07)
PROC: 0RG20A0 Fusion of 2 or more Cervical Vertebral Joints with Interbody Fusion Device, Anterior Approach, Anterior Column, Open Approach (ICD-10-PCS; principal; 2018-02-07)
PROC: 0RB30ZZ Excision of Cervical Vertebral Disc, Open Approach (ICD-10-PCS; principal; 2018-02-07)
DX: M50.023 Cervical disc disorder at C6-C7 level with myelopathy (principal); K21.9 Gastro-esophageal reflux disease without esophagitis; Z90.49 Acquired absence of other specified parts of digestive tract
CPT/HCPCS: 2NASP; 36415; 76000; 87086; 93005; 93010; 97116-GO; 97161-GP; 97530-GO; C1713; J0131; J0690; J1644; J2405; J3490